=== PATIENT | female | born 1955 | race African-American/Black ===

== ENCOUNTER 2016-07-24 16:36 | Emergency (ER) | payer BC, OTHER ==
[~2016-07-24 16:36] MED LIST: ASA CHILDREN'S81 MG PO; LISINOPRIL10 MG PO; MOTRIN-DPS800 MG PO; PEPCID40 MG PO; PREDNISONE20 MG PO
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
== END 2016-07-24 17:25 | disposition home or self-care (01) ==
LOC: ER 16:36
DX: S20.211A Contusion of right front wall of thorax, initial encounter (principal); S80.12XA Contusion of left lower leg, initial encounter; I10 Essential (primary) hypertension; Z90.710 Acquired absence of both cervix and uterus; Z88.5 Allergy status to narcotic agent; Z79.899 Other long term (current) drug therapy; V43.52XA Car driver injured in collision with other type car in traffic accident, initial encounter